=== PATIENT | male | born 1935 | race Caucasian/White ===

== ENCOUNTER 2017-01-25 07:51 | Emergency (ER) | payer MEDICARE, BC ==
[2017-01-25 08:10] VITALS: BP 116/50
[2017-01-25] MEDS ORDERED: Sodium Chloride 0.9% 10 ML Syringe FLUSH PRN (08:24)
--- NOTE | 2017-01-25 08:25 | EDM.PDOC ---
ED HPI GENERAL MEDICAL PROBLEM - General Chief Complaint: Abdominal Pain Stated Complaint: ABDOMINAL PAIN,NAUSEA Time Seen by Provider: 01/25/17 08:15 Source of Information: Reports: Patient, RN Notes Reviewed - History of Present Illness INITIAL COMMENTS - FREE TEXT/NARRATIVE: 81-year-old male has been having intermittent abdominal discomfort for the last few days. His appetite is been diminished. He has not had a bowel movement for 2 or 3 days and concerned that he may be constipated. He is not having abdominal discomfort at this time. He does feel somewhat more weak and tired than usual. He has not had fever that he is aware of. No history of prior abdominal surgeries. He is not diabetic. No chest pain or difficulty breathing. - Related Data Allergies Allergy/AdvReac Type Severity Reaction Status Date / Time No Known Allergies Allergy Verified 01/25/17 08:09 Home Meds: Home Meds Aspirin [Halfprin] 81 mg PO DAILY 04/28/16 [History] Lisinopril 10 mg PO DAILY 04/28/16 [History] Metoprolol Tartrate 25 mg PO BID 04/28/16 [History] Nitroglycerin 0.4 mg SL ASDIRECTED 04/28/16 [History] Ticagrelor [Brilinta] 90 mg PO BID 04/28/16 [History] atorvaSTATin [Lipitor] 80 mg PO BEDTIME 04/28/16 [History] Warfarin [Coumadin] 5 mg PO DAILY #20 tablet 04/29/16 [Rx] amLODIPine [Norvasc] 10 mg PO BEDTIME 05/12/16 [History] Ciprofloxacin HCl [Cipro] 500 mg PO Q12HR #7 tablet 01/25/17 [Rx] Ondansetron [Zofran ODT] 4 mg PO Q8H PRN #10 tab.dis 01/25/17 [Rx] Past Medical History Cardiovascular History: Reports: Blood Clots/VTE/DVT, Hypertension, [place], Stents Gastrointestinal History: Reports: GERD, Hemorrhoids Musculoskeletal History: Reports: Arthritis Other Musculoskeletal History: tremors Neurological History: Reports: None - Infectious Disease History Infectious Disease History: Reports: Shingles Other Infectious Disease History: belles palsy - Past Surgical History HEENT Surgical History: Reports: Adenoidectomy, Tonsillectomy Cardiovascular Surgical History: Reports: Carotid Stents GI Surgical History: Reports: None Musculoskeletal Surgical History: Reports: None Social & Family History - Family History Family Medical History: Noncontributory Cardiac: Reports: IN Musculoskeletal: Reports: Arthritis Neurological: Reports: CVA Psychiatric: Reports: Depression, PTSD Endocrine/Metabolic: Reports: Diabetes, type II Immunologic: Reports: None Oncologic: Reports: Colon Other Oncologic Family History: mother but unsure of what kind - Tobacco Use Smoking Status *Q: Former Smoker Years of Tobacco use: 15 Packs/Tins Daily: 0.5 Used Tobacco, but Quit: Yes Month Tobacco Last Used: unk Second Hand Smoke Exposure: No - Caffeine Use Caffeine Use: Reports: Coffee Caffeine Use Comment: 2 drinks a day - Alcohol Use Days Per Week of Alcohol Use: 1 Number of Drinks Per Day: 2 Total Drinks Per Week: 2 - Recreational Drug Use Recreational Drug Use: No - Living Situation & Occupation Living situation: Reports: , with Spouse Occupation: Retired ED ROS GENERAL - Review of Systems Review Of Systems: See Below Constitutional: Denies: Fever, Chills, Diaphoresis HEENT: Reports: No Symptoms Respiratory: Denies: Shortness of Breath, Pleuritic Chest Pain, Cough Cardiovascular: Denies: Chest Pain GI/Abdominal: Reports: Abdominal Pain, Constipation (Gone), Nausea. Denies: Diarrhea, Hematochezia, Melena, Vomiting Musculoskeletal: Reports: No Symptoms Skin: Reports: No Symptoms Neurological: Reports: Dizziness ED EXAM, GI/ABD - Physical Exam Exam: See Below Exam Limited By: No Limitations General Appearance: Alert, No Apparent Distress Course - Vital Signs Last Recorded V/S: Last Vital Signs Temp 97.8 F 01/25/17 08:06 Pulse 51 L 01/25/17 08:06 Resp 16 01/25/17 08:06 BP 116/50 L 01/25/17 08:06 Pulse Ox 96 01/25/17 08:06 - Orders/Labs/Meds Orders: Active Orders 24 hr Category Date Time Status Peripheral IV Care [RC] . DIRECTED Care 01/25/17 08:25 Active Abdomen 2V AP Flat Upright [CR] Stat Exams 01/25/17 08:35 Taken Peripheral IV Insertion Adult [OM.PC] Stat Oth 01/25/17 08:24 Ordered Labs: Laboratory Tests 01/25/17 01/25/17 Range/Units 08:50 08:50 WBC 16.26 H (4.23-9.07) K/mm3 RBC 4.81 (4.63-6.08) M/mm3 Hgb 14.3 (13.7-17.5) gm/L Hct 42.4 (40.1-51.0) % MCV 88.1 (79.0-92.2) fl MCH 29.7 (25.7-32.2) pg MCHC 33.7 (32.2-35.5) g/dl RDW Std Deviation 45.5 H (35.1-43.9) fL Plt Count 233 (163-337) K/mm3 MPV 10.8 (9.4-12.3) fl Neut % (Auto) 78.4 H (34.0-67.9) % Lymph % (Auto) 9.0 L (21.8-53.1) % [place] % (Auto) 12.1 (5.3-12.2) % Eos % (Auto) 0.1 L (0.8-7.0) Baso % (Auto) 0.1 (0.1-1.2) % Neut # (Auto) 12.74 H (1.78-5.38) K/mm3 Lymph # (Auto) 1.47 (1.32-3.57) K/mm3 [place] # (Auto) 1.96 H (0.30-0.82) K/mm3 Eos # (Auto) 0.02 L (0.04-0.54) K/mm3 Baso # (Auto) 0.02 (0.01-0.08) K/mm3 Manual Slide Review Abnormal smear Sodium 138 (136-145) mEq/L Potassium 3.6 (3.5-5.1) mEq/L Chloride 103 (98-107) mEq/L Carbon Dioxide 26 (21-32) mEq/L Anion Gap 12.6 (5-15) BUN 19 H (7-18) mg/dL Creatinine 1.6 H (0.7-1.3) mg/dL Est Cr Clr Drug Dosing TNP Estimated GFR (MDRD) 42 (>60) mL/min BUN/Creatinine Ratio 11.9 L (14-18) Glucose 107 (83-115) mg/dL Calcium 9.1 (8.5-10.1) mg/dL Total Bilirubin 1.1 H (0.2-1.0) mg/dL AST 28 (15-37) U/L ALT 34 (16-63) U/L Alkaline Phosphatase 70 (46-116) U/L Total Protein 8.1 (6.4-8.2) g/dl Albumin 3.6 (3.4-5.0) g/dl Globulin 4.5 gm/dL Albumin/Globulin Ratio 0.8 L (1-2) Lipase 333 (73-393) U/L Meds: Medications Discontinued Medications Generic Name Dose Route Start Last Admin Trade Name Freq PRN Reason Stop Dose Admin Sodium Chloride 1,000 mls @ 150 mls/hr 01/25/17 08:45 01/25/17 10:36 Normal Saline IV 999 mls/hr ASDIRECTED DRAKE Infusion Sodium Chloride 1,000 mls @ 999 mls/hr 01/25/17 10:36 Normal Saline IV ASDIRECTED DRAKE Magnesium Hydroxide 30 ml 01/25/17 10:15 01/25/17 10:29 Milk Of Magnesia PO 01/25/17 10:16 30 ml ONETIME ONE Administration Ondansetron HCl 4 mg 01/25/17 10:15 01/25/17 10:26 Zofran IVPUSH 01/25/17 10:16 4 mg ONETIME ONE Administration Sodium Chloride 10 ml 01/25/17 08:24 01/25/17 08:50 Saline Flush FLUSH 10 ml ASDIRECTED PRN Administration Keep Vein Open - Re-Assessments/Exams Free Text/Narrative Re-Assessment/Exam: 01/25/17 10:22. White blood count did come back mildly elevated, 16,000. He continues to have no abdominal pain while here in the ED. Examination abdomen continues to be completely soft and nontender. He and his not tell me that they did attend a "powwow" 2 days ago. There was catered foods brought in for that. His is wondering if perhaps something he did eat may be contributing to the symptoms of abdominal discomfort not feeling well since that time. That is certainly possible. He has not been having diarrhea. Flat and upright abdomen does show mildly increased stool, no air-fluid levels. I do not see indication for CT scan at this time. We will infuse the remainder of his IV, given Zofran IV. He will then be discharged on clear liquids, probiotic twice daily and Zofran if needed. He and family understand if he does start having worsening pain to any area of his abdomen or symptoms otherwise worsening he needs to return to ED immediately. With the possibility of some low-grade food poisoning I am going to put him on Cipro antibiotic 500 mg twice daily for 3 days. Departure - Departure Time of Disposition: 12:00 Disposition: Home, Self-Care 01 Condition: Fair Clinical Impression: Abdominal pain Qualifiers: Abdominal location: generalized Qualified Code(s): R10.84 - Generalized abdominal pain Constipation Qualifiers: Constipation type: unspecified constipation type Qualified Code(s): K59.00 - Constipation, unspecified - Discharge Information Prescriptions: Ciprofloxacin HCl [Cipro] 500 mg PO Q12HR #7 tablet Ondansetron [Zofran ODT] 4 mg PO Q8H PRN #10 tab.dis PRN Reason: Nausea/Vomiting Instructions: Constipation, Adult, [id number] Referrals: Chandrakant Joy MD [Primary Care Provider] - Forms: ED Department Discharge Additional Instructions: Clear liquids only until this evening, then very careful bland diet as tolerated. Cipro 500 mg twice daily, probiotic twice daily strongly recommended , follow-up clinic if not much better within 1-2 days as expected, return to ED as discussed if symptoms worsening in any way. - My Orders Last 24 Hours: My Active Orders 01/25/17 08:24 Peripheral IV Insertion Adult [OM.PC] Stat 01/25/17 08:25 Peripheral IV Care [RC] . DIRECTED 01/25/17 08:35 Abdomen 2V AP Flat Upright [CR] Stat - Assessment/Plan Last 24 Hours: My Active Orders 01/25/17 08:24 Peripheral IV Insertion Adult [OM.PC] Stat 01/25/17 08:25 Peripheral IV Care [RC] . DIRECTED 01/25/17 08:35 Abdomen 2V AP Flat Upright [CR] Stat
[2017-01-25] MEDS ORDERED: Sodium Chloride 0.9% 1,000 ML IV SCH ×2 (08:45→10:36)
[2017-01-25] MEDS ORDERED: Ondansetron 4 MG/2 ML SDV IVPUSH ONE (10:15)
[2017-01-25] MEDS ORDERED: Magnesium Hydroxide 400 MG/5 ML Susp 30 ML Cup PO ONE (10:15)
--- NOTE | 2017-01-25 15:17 | CR ---
Abdomen: Upright and supine views were obtained of the abdomen. Comparison: No previous study. Scattered degenerative endplate spurring is noted within the spine. Bowel gas pattern appears within normal limits. Mild vascular calcification is seen. No free air is identified. No abnormal air-fluid levels are seen. Impression: 1. Incidental findings. Diagnostic code #2
== END 2017-01-25 11:40 | disposition home or self-care (01) ==
LOC: JD.ED 07:51
DX: K59.00 Constipation, unspecified (principal); K21.9 Gastro-esophageal reflux disease without esophagitis; I10 Essential (primary) hypertension; I25.2 Old myocardial infarction; Z90.49 Acquired absence of other specified parts of digestive tract; Z79.82 Long term (current) use of aspirin; Z79.01 Long term (current) use of anticoagulants; Z87.891 Personal history of nicotine dependence
CPT/HCPCS: 36415; 74020; 80053; 83690; 85025; 96361; 96374; 99284; A9270; J2405; J7040; J7050

== ENCOUNTER 2020-03-30 07:41 | Emergency (ER) | payer MEDICARE, BC ==
[2020-03-30 07:54] VITALS: BP 144/76; PULSE 106
--- NOTE | 2020-03-30 08:00 | EDM.PDOC ---
ED HPI GENERAL MEDICAL PROBLEM - General Chief Complaint: Skin Complaint Stated Complaint: RASH ON BACK Time Seen by Provider: 03/30/20 08:00 Source of Information: Reports: Patient History Limitations: Reports: No Limitations - History of Present Illness INITIAL COMMENTS - FREE TEXT/NARRATIVE: 85-year-old male presents to the ED with a painful erythematous rash in his left lower back and upper buttock and radiates towards his left groin and mons pubis area. He believes the rash started about 3 days ago. He does not recall having any severe pain in this distribution until the rash showed up. He believes he has had shingles involving the right side of his face in the past. Currently he states the pain is bad enough that it is disrupting his ability to sleep. Onset: Gradual Onset Date: 03/28/20 Duration: Day(s):, Getting Worse Location: Reports: Back (Left lower back spreading around the left iliac crest towards the left groin.) Quality: Reports: Ache, Burning, Stabbing Severity: Moderate (7-8 out of 10.) Improves with: Reports: Other (Is worse with any clothing touching the area.) Context: Reports: Other. Denies: Activity, Exercise, Lifting, Sick Contact, Tr auma Associated Symptoms: Denies: No Other Symptoms, Confusion, Chest Pain, Cough, cough w sputum (Spontaneous occurrence), Diaphoresis, Fever/Chills, Headaches, Loss of Appetite, Malaise, Shortness of Breath, Syncope Treatments STEEL MELTER: Reports: Acetaminophen Left Lower Back Pain Score (Numeric/FACES): 5 - Related Data Allergies Allergy/AdvReac Type Severity Reaction Status Date / Time No Known Allergies Allergy Verified 01/25/17 08:09 Home Meds: Home Meds Aspirin [Halfprin] 81 mg PO DAILY 04/28/16 [History] Lisinopril 10 mg PO DAILY 04/28/16 [History] Metoprolol Tartrate 25 mg PO BID 04/28/16 [History] Nitroglycerin 0.4 mg SL ASDIRECTED 04/28/16 [History] Ticagrelor [Brilinta] 90 mg PO BID 04/28/16 [History] atorvaSTATin [Lipitor] 80 mg PO BEDTIME 04/28/16 [History] Warfarin [Coumadin] 5 mg PO DAILY #20 tablet 04/29/16 [Rx] amLODIPine [Norvasc] 10 mg PO BEDTIME 05/12/16 [History] Ciprofloxacin HCl [Cipro] 500 mg PO Q12HR #7 tablet 01/25/17 [Rx] Ondansetron [Zofran ODT] 4 mg PO Q8H PRN #10 tab.dis 01/25/17 [Rx] Acetaminophen/HYDROcodone [[place] 325-5 MG] 1 tab PO Q6H #24 tablet 03/30/20 [Rx] valACYclovir [Valtrex] 1,000 mg PO TID #21 tab 03/30/20 [Rx] Past Medical History Cardiovascular History: Reports: Afib (Is on Coumadin chronically. Also on Brilinta because of stents), Blood Clots/VTE/DVT, Hypertension, ID, PVD, Stents Gastrointestinal History: Reports: GERD, Hemorrhoids Musculoskeletal History: Reports: Arthritis Other Musculoskeletal History: tremors Neurological History: Reports: None - Infectious Disease History Infectious Disease History: Reports: Shingles Other Infectious Disease History: belles palsy - Past Surgical History HEENT Surgical History: Reports: Adenoidectomy, Tonsillectomy Cardiovascular Surgical History: Reports: Carotid Stents GI Surgical History: Reports: None Musculoskeletal Surgical History: Reports: None Social & Family History - Family History Family Medical History: Noncontributory Cardiac: Reports: ID Musculoskeletal: Reports: Arthritis Neurological: Reports: CVA Psychiatric: Reports: Depression, PTSD Endocrine/Metabolic: Reports: Diabetes, type II Immunologic: Reports: None Oncologic: Reports: Colon Other Oncologic Family History: mother but unsure of what kind - Caffeine Use Caffeine Use: Reports: Coffee Caffeine Use Comment: 2 drinks a day - Living Situation & Occupation Living situation: Reports: , with Spouse Occupation: Retired ED ROS GENERAL - Review of Systems Review Of Systems: See Below Constitutional: Reports: Fatigue (Disrupted sleep pattern). Denies: Fever, Chills, Malaise, Decreased Appetite HEENT: Reports: Glasses, Hearing Loss (Mildly hard of hearing) Respiratory: Reports: No Symptoms Cardiovascular: Reports: Dyspnea on Exertion. Denies: Chest Pain, Blood Pre ssure Problem, Edema, Lightheadedness Endocrine: Reports: Fatigue (On occasion.) GI/Abdominal: Reports: Constipation (Problems with constipation intermittently) : Reports: Frequency, Other (Nocturia x2 or 3) Musculoskeletal: Reports: Back Pain, Joint Pain (Knees hips lower back shoulders and neck at times) Skin: Reports: Other (Currently has herpes zoster in the L1 nerve root distribution left side traveling from his lower back to the left inguinal area) Neurological: Reports: No Symptoms Psychiatric: Reports: No Symptoms Hematologic/Lymphatic: Reports: No Symptoms Immunologic: Reports: No Symptoms ED EXAM, SKIN/RASH Exam: See Below Exam Limited By: No Limitations General Appearance: Alert, WD/WN, No Apparent Distress, Other (Temperature is 36.4 heart rate 106 and sinus respiratory is 20 BP 1 4476 pulse ox 98% on room air) Eye Exam: Bilateral Eye: Normal Inspection, PERRL, Other (Previous bilateral cataract extractions and intraocular lens placements.) Peripheral Pulses: 1+: Posterior Tibial (L), Posterior Tibial (R), Dorsalis Pedis (L), Dorsalis Pedis (R), 2+: Carotid (L), Carotid (R) GI/Abdominal: Normal Bowel Sounds, Soft, Non-Tender, No Organomegaly, No Mass, Pelvis Stable Back Exam: Other (Rash left lower back.) Neurological: Alert, Oriented, CN II-XII Intact, Normal Cognition Psychiatric: Normal Affect, Normal Mood Skin: Warm, Dry, Zoster-Like Rash (Patient has herpes zoster involving the L1-L2 dermatome left lower back which spreads along the left iliac crest down into the mons pubis area of the left groin.), Other Location, Skin: Back (Left lower back), Groin (Left groin) Characteristics: Vesicular (Vesicular erythematous rash) Associated features: Warmth, Tenderness, Weeping (Minimally weeping.) Course - Vital Signs Last Recorded V/S: Last Vital Signs Temp 36.4 C 03/30/20 07:53 Pulse 106 H 03/30/20 07:53 Resp 20 03/30/20 07:53 BP 144/76 H 03/30/20 07:53 Pulse Ox 98 03/30/20 07:53 - Orders/Labs/Meds Meds: Medications Discontinued Medications Generic Name Dose Route Start Last Admin Trade Name Freq PRN Reason Stop Dose Admin Hydrocodone Bitart/Acetaminophen 1 tab 03/30/20 08:08 03/30/20 08:27 [place] 325-5 Mg PO 03/30/20 08:09 1 tab ONETIME ONE Administration Valacyclovir HCl 500 mg 03/30/20 08:07 Valtrex PO 08/23/20 08:08 ONETIME ONE Valacyclovir HCl 1,000 mg 03/30/20 08:11 03/30/20 08:28 Valtrex PO 03/30/20 08:12 1,000 mg ONETIME ONE Administration - Radiology Interpretation Free Text/Narrative:: 85-year-old male presents to the ED with a rash starting on his left lower back and spreads along the iliac crest and upper buttock around the hip to the left groin and mons pubis. He states he appreciated it 3 days ago. It is moderately tender to touch and especially clothing rubbing on it. Examination reveals this to be herpes zoster in the distribution of the L1-L2 nerve root. He has had previous zoster affecting the right side of his face many years ago. Treated with valacyclovir 1 g in the ED. Prescription given for 1 g 3 times da wendy for the next 7 days and [place] 5/325 mg 1 every 6 hours necessary for pain relief. Patient cannot take Motrin or Aleve as he is on Brilinta and Coumadin. The problem is getting enough valacyclovir today. I could only give him 1 g tablet through the ED today. He usually gets his medications filled in [facility]. Advised that the only drug sure that will be opened that he will be the [facility] at 12 PM where he could get the rest of his medications filled. I believe he will probably wait until tomorrow to fill meds. He is at much higher risk of developing postherpetic neuralgia due to the rash being present already for 3 days and a delay in starting anti-viral medication. He is to follow-up with his personal care provider in 8 days time Departure - Departure Time of Disposition: 08:09 Disposition: Home, Self-Care 01 Condition: Fair Clinical Impression: Herpes zoster Qualifiers: Herpes zoster complications: without complications Qualified Code(s): B02.9 - Zoster without complications - Discharge Information *PRESCRIPTION DRUG MONITORING PROGRAM REVIEWED*: Not Applicable *COPY OF PRESCRIPTION DRUG MONITORING REPORT IN PATIENT MALIK: Not Applicable Prescriptions: Acetaminophen/HYDROcodone [[place] 325-5 MG] 1 tab PO Q6H #24 tablet valACYclovir [Valtrex] 1,000 mg PO TID #21 tab Instructions: Shingles, [id number] Referrals: Benita,Chandrakant P, MD [Primary Care Provider] - Forms: ED Department Discharge Additional Instructions: Evaluation in the emergency room this morning in regards to a very painful skin rash that is developed on your left lower back and spreading around to the left inguinal fold to the groin. This rash is secondary to reemergence of the chickenpox virus which is called herpes zoster or shingles. It causes tremendous inflammation of the skin in the dermatome that the nerve root supplies coming out of the spinal cord part. Currently your is is in the left L1 nerve root distribution. Treatment is antiviral medication Valacyclovir 1 gm tablet 3 times daily for 1 week. Pain medication is [place] 5/325 mg ,usually 1 tablet every 6 hrs to relieve pain . The rash will continue to break out for another 4 days and be in his blister formation then do some serous fluid for a few days and then start to scab over. The rash itself will take about 3 weeks to scab over completely and then will start to heal leaving with a discolored skin in the distribution of the rash for many months or even a year. Suggest follow-up with your personal care physician in about 8 days time. Sepsis Event Note (ED) - Evaluation Sepsis Screening Result: No Definite Risk - Focused Exam Vital Signs: Vital Signs Temp Pulse Resp BP Pulse Ox 03/30/20 07:53 36.4 C 106 H 20 144/76 H 98
[2020-03-30] MEDS ORDERED: valACYclovir 500 MG Tab PO ONE (08:07)
[2020-03-30] MEDS ORDERED: Acetaminophen/HYDROcodone 325-5 MG Tab PO ONE (08:08)
[2020-03-30] MEDS ORDERED: valACYclovir 1,000 MG Tab PO ONE (08:11)
== END 2020-03-30 08:35 | disposition home or self-care (01) ==
LOC: JD.ED 07:41
DX: B02.9 Zoster without complications (principal); I48.91 Unspecified atrial fibrillation; I10 Essential (primary) hypertension; I25.2 Old myocardial infarction; M19.90 Unspecified osteoarthritis, unspecified site; Z79.82 Long term (current) use of aspirin; Z79.899 Other long term (current) drug therapy; Z79.01 Long term (current) use of anticoagulants
CPT/HCPCS: 99282; A9270; 99283